=== PATIENT | male | born 1940 | race Caucasian/White ===

== ENCOUNTER 2019-03-09 10:48 | Inpatient (IN) | payer MEDICARE ==
[~2019-03-09] VITALS: Ht 177.8 cm; Wt 70.3 kg
[2019-03-09 10:49] VITALS: Ht 177.8 cm; Wt 70.3 kg
--- NOTE | 2019-03-09 10:51 | NUR ---
PT CAME FROM HOME VIA [facility]. PER DAUGHTER WAS TAKING HIM A BATH WHEN DAUGHTER NOTICED HE WAS NOT RESPONDING AND BECOMING VERY WEAK. 911 WAS CALLED. ON SCENE PARAMEDICS STATE HE WAS UNRESPONSIVE, NPA STARTED AND BEGAIN BAG VALVE MASK. PER CHRISTIAN SCIENCE PRACTITIONER BP WAS 69/47 THEN INFUSED 500CC. POST BP WAS 91/61. PT WAS AFIB ON MONITOR IN TRANSIT. PT ARRIVED WITH BAG VALVE MASK VIA NPA. PT NPA WAS TAKEN OUT AT 1051, PUT ON FULL CARDIAC MONITORS. BS TAKEN WAS 77 ON ARRIVAL. PT WAS PLACED ON NON REBREATHER MASK AT 15L/MIN OF 02, BREATH SOUNDS CLEAR TO ASCULTATION, DEEP LABORED BREATHING NOTED. PT CARDIAC RHYTHM IS IRREGULAR, PT SKIN IS COOL TO TOUCH, PROVIDED WARM BLANKETS AND REMOVED WET TOWEL THAT PT WAS BROUGHT ON. SKIN IS CLEAN AND INTACT. PT ON CARDIAC MONITORS AND DEFIB MONITOR WILL CONTINUE TO MONITOR
[2019-03-09 11:34] LABS: ALKALINE PHOSPHATASE 393 U/L (46-116); AST/SGOT 51 U/L (15-37); BILIRUBIN TOTAL 0.38 mg/dL (0.20-1.00); CARBON DIOXIDE 12.2 mmol/L (21-32); CHLORIDE SERUM 98 mmol/L (98-107); CREATININE SERUM 2.6 mg/dL (0.7-1.3); GLUCOSE SERUM 92 mg/dL (74-106); PLATELET COUNT 345 x10^3mcL (130-400); POTASSIUM SERUM 3.8 mmol/L (3.5-5.1); SODIUM SERUM 136 mmol/L (136-145)
[2019-03-09 11:46] LABS: ALT/SGPT 38 U/L (16-63)
[2019-03-09 11:50] LABS: microscopic required? YES; urine erythrocyte TRACE (NEGATIVE)
--- NOTE | 2019-03-09 11:57 | NUR ---
ATTENDED PT TO CT WITH DEFIB MONITOR. PT TOLERATED CT SCAN WELL. BACK IN ROOM AND BREATHING ON OWN WITH SPO2 AT 98% WITH 15ML NON REBREATHER MASK. EKG AT BEDSIDE
[2019-03-09 12:05] LABS: ALBUMIN 1.8 g/dL (3.4-5.0); CHOLESTEROL 96 mg/dL (<200); TOTAL PROTEIN, SERUM 6.1 g/dL (6.4-8.2)
[2019-03-09 12:18] LABS: BAND NEUTROPHIL 67 % (0-10); BASOPHIL 0 % (0-2); MONOCYTE 7 % (0-7); SEGMENTED NEUTROPHILS 11 % (37-75)
--- NOTE | 2019-03-09 12:20 | NUR ---
DR PATEL AT BEDSIDE DISCUSSING TREATMENT AND POC WITH PTS DAUGHTER.
[2019-03-09 12:21] LABS: burr cell (echinocyte) 2+; rbc morphology (normal/abnorm) ABNORMAL (NORMAL)
--- NOTE | 2019-03-09 12:26 | NUR ---
2ND LITER OF NS STARTED WELL ZOSYN IVF INFUSION ORDERED BY SEE EMAR. IV SITE PATENT
--- NOTE | 2019-03-09 12:34 | NUR ---
DR PATEL WITH PORTABLE US AT BEDSIDE
--- NOTE | 2019-03-09 12:48 | NUR ---
PT ANSWERING QUESTIONS. PT BEING BROUGHT TO CT FOR ABD
--- NOTE | 2019-03-09 13:48 | NUR ---
DR PATEL AT BEDSIDE SPEAKING TO DAUGHTER REGARDING POSSIBLE NEED FOR CENTRAL LINE PLACEMENT IF BLOOD PRESSURE BECOMES UNSTABLE AGAIN. DR PATEL SPOKE WITH PT AND HIS DAUGHTER REGARDING ALL RISKS AND BENEFITS OF PLACEMENT. DAUGHTER AND PT VERBALIZED UNDERSTANDING AND SIGNED CONSENT FOR CENTRAL LINE PLACEMENT AT THIS TIME. NO CENTRAL TO BE PLACED RIGHT AT THIS TIME.
--- NOTE | 2019-03-09 13:52 | NUR ---
PER DR PATEL, CONTINUE TO MONITOR BP. HOLD LEVOPHED AT THIS TIME.
--- NOTE | 2019-03-09 14:05 | NUR ---
RECTAL TEMP RECHECKED, 95.7, MADE AWARE.
--- NOTE | 2019-03-09 14:21 | NUR ---
WARMING BLANKET SET UP AND PLACED ON PT AT THIS TIME. PT LAYING IN POSITION OF COMFORT WITH GRANDDAUGHTER AT BEDSIDE. ANSWERING ALL QUESTIONS APPROPRIATELY.
[2019-03-09] MEDS ORDERED: POTASSIUM CHLO10 MEQ (14:45)
[2019-03-09] MEDS ORDERED: PROSCAR5 MG (14:45)
--- NOTE | 2019-03-09 15:20 | NUR ---
CLARIFIED ORDER FOR LOPRESSOR.
--- NOTE | 2019-03-09 15:43 | NUR ---
REPORT GIVEN TO BECCA MONOZN RESUMING CARE OF PT IN ICU
[2019-03-09 15:56] LABS: AMPHETAMINE QUAL UR NONE DETECTED (See below)
--- NOTE | 2019-03-09 15:58 | NUR ---
PT TRANSPORTED TO ICU VIA GURNEY ON PORTABLE CM NO DISTRESS.IVF INFUSION RESUMED BY BECCA MONZON IN ICU. FAMILY ACCOMPANIED PT. PT DC'D FROM ER AT THIS TIME.
[2019-03-09 16:39] VITALS: BP 92/69
--- NOTE | 2019-03-09 17:11 | NUR ---
IV BOLUS OF 1L NS INITIATED AT THIS TIME.
--- NOTE | 2019-03-09 17:19 | NUR ---
PATIENT'S DAUGHTER REQUESTING THAT SPECIAL WARFARE BOAT OPERATOR COME BACK LATER FOR LAB DRAW. EDUCATION PROVIDED REGARDING LAB RESULTS. DAUGHTER AGREED THAT SPECIAL WARFARE BOAT OPERATOR CAN COME BACK IN 1 HOUR.
[2019-03-09 18:04] VITALS: BP 92/69
--- NOTE | 2019-03-09 19:15 | NUR ---
RECIEVED REPORT FROM NA HUDSON. NURSING UPDATES. POC DISCUSSED. SEE SHIFT ASSESSMENT FOR ASSESSMENT.
--- NOTE | 2019-03-09 19:23 | NUR ---
REPORT GIVEN TO RAMÍREZ MONZON. PATIENT RESTING COMFORTABLY IN BED WITH ALL NEEDS MET. ALL QUESTIONS AND CONCERNS ADDRESSED. ALL CARES ENDORSED.
[2019-03-09 19:28] LABS: CALCIUM 8.7 mg/dL (8.5-10.1); CARBON DIOXIDE 19.4 mmol/L (21-32); CHLORIDE SERUM 106 mmol/L (98-107); CREATININE SERUM 1.7 mg/dL (0.7-1.3); GLUCOSE SERUM 96 mg/dL (74-106); SODIUM SERUM 139 mmol/L (136-145)
[2019-03-09 19:46] LABS: PLATELET COUNT 249 x10^3mcL (130-400); RED CELL DISTRIBUTION WIDTH 14.3 % (11.5-14.5)
[2019-03-09 19:51] VITALS: BP 117/69
[2019-03-09 19:58] LABS: BAND NEUTROPHIL 52 % (0-10); BASOPHIL 0 % (0-2); MONOCYTE 2 % (0-7); SEGMENTED NEUTROPHILS 32 % (37-75); rbc morphology (normal/abnorm) ABNORMAL (NORMAL)
[2019-03-09 19:59] LABS: burr cell (echinocyte) 1+
--- NOTE | 2019-03-09 22:34 | NUR ---
DR GREENE @ BEDSIDE. NURSING UPDATES. POC DISCUSSES. NEW ORDERS F/C TO BE INSERTED FOR FLUID VOLUME MONITORING. F/C SECURE AND INTACT PLACED W/ URINE RETURN. SECURED TO L LEG. BALLOON INFLATED W/ RESISTANCE.
[2019-03-10 00:07] VITALS: BP 105/74
--- NOTE | 2019-03-10 00:14 | NUR ---
DR PAL @ BEDSIDE. NURSING UPDATES. POC DISCUSSED. NO NEW ORDERS @ THIS TIME. KIKA GRAND DAUGHTER LEFT NUMBER [phone].
--- NOTE | 2019-03-10 01:58 | NUR ---
NO ACUTE CHANGES. PT STILL NEED OF RESTRAINTS. WILL CONT TO MONITOR.
--- NOTE | 2019-03-10 03:00 | NUR ---
NO ACUTE CHANGES. WILL CONT TO MONITOR.
[2019-03-10 04:39] VITALS: BP 141/66
[2019-03-10 05:15] LABS: PLATELET COUNT 237 x10^3mcL (130-400); RED CELL DISTRIBUTION WIDTH 14.3 % (11.5-14.5)
[2019-03-10 05:25] LABS: CALCIUM 8.6 mg/dL (8.5-10.1); CHLORIDE SERUM 112 mmol/L (98-107); CREATININE SERUM 1.3 mg/dL (0.7-1.3); GLUCOSE SERUM 141 mg/dL (74-106); PHOSPHOROUS 2.1 mg/dL (2.5-4.9); SODIUM SERUM 145 mmol/L (136-145)
[2019-03-10 05:28] LABS: POTASSIUM SERUM 2.7 mmol/L (3.5-5.1)
--- NOTE | 2019-03-10 05:34 | NUR ---
LAB NOTIFIED OF K+ 2.7. NOTIFIED DR AUSTIN, MADE AWARE, AWAITING NEW ORDERS.
[2019-03-10 05:48] LABS: BAND NEUTROPHIL 2 % (0-10); BASOPHIL 0 % (0-2); MONOCYTE 13 % (0-7); PLATELET MORPHOLOGY PLATELETS NORMAL; SEGMENTED NEUTROPHILS 75 % (37-75)
[2019-03-10 05:49] LABS: rbc morphology (normal/abnorm) NORMAL (NORMAL)
--- NOTE | 2019-03-10 06:20 | NUR ---
DR AUSTIN @ BEDSIDE. NURSING UPDATES. NO NEW ORDERS @ THIS TIME.
--- NOTE | 2019-03-10 07:45 | NUR ---
PT RESTING IN BED. GRUNTS AND MOANS ONLY AT THIS TIME. RESTLESS. ON BILATERAL SOFT WRIST RESTRAINTS. RESP EVEN AND UNLABORED ON 3L O2 VIA NC, O2 SAT 100%. HYPOACTIVE BOWEL SOUNDS, ABD SLIGHTLY DISTENDED, SLIGHTLY FIRM. AJ CATHETER DRAINING YELLOW URINE TO GRAVITY. PULSES PALPABLE ON ALL EXTREMITIES. HOB ELEVATED. FALL PRECAUTIONS. WILL CONTINUE OT MONITOR.
[2019-03-10 08:10] VITALS: BP 147/69
--- NOTE | 2019-03-10 11:27 | NUR ---
SHIFT REASSESSMENT DONE. PT SLEEPING AT THIS TIME. GRUNTS AND MOANS AT TIMES. UNABLE TO FOLLOW COMMANDS AT THIS TIME. RESP EVEN AND UNLABORED ON 1L O2 VIA NC. ABD SLIGHTLY DISTENDED AND FIRM. AJ CATHETER DRAINING YELLOW URINE TO GRAVITY. HOB ELEVATED. BILAT SOFT WRIST RESTRAINTS IN PLACE. FALL PRECAUTIONS. WILL CONTINUE TO MONITOR.
[2019-03-10 11:30] VITALS: BP 126/78
[2019-03-10 12:56] LABS: CALCIUM 8.7 mg/dL (8.5-10.1); CARBON DIOXIDE 22.3 mmol/L (21-32); CHLORIDE SERUM 112 mmol/L (98-107); CREATININE SERUM 1.3 mg/dL (0.7-1.3); GLUCOSE SERUM 141 mg/dL (74-106); SODIUM SERUM 145 mmol/L (136-145)
[2019-03-10 12:58] LABS: POTASSIUM SERUM 2.7 mmol/L (3.5-5.1)
--- NOTE | 2019-03-10 15:35 | NUR ---
DR. EDGEED AT BEDSIDE UPDATING PT'S DAUGHTER REGARDING PLAN OF CARE.
--- NOTE | 2019-03-10 15:44 | NUR ---
SHIFT REASSESSMENT DONE. PT REMAINS ALTERED, MOANING AND GRUNTING AT TIMES. ATTEMPTS TO PULL ON LINES AND EQUIPMENT. BILAT SOFT WRIST RESTRAINTS IN PLACE, ROM INTACT. RESP EVEN AND UNLABORED ON 1L NC, O2 SAT 100%. ABD SLIGHTLY FIRM AND DISTENDED. IVF INFUSING, NO REDNESS OR SWELLING TO RAC. S/L HO IV, NO REDNESS OR SWELLING. AJ CATHETER DRAINING YELLOW URINE TO GRAVITY. HOB ELEVATED. FALL PRECAUTIONS. WILL CONTINUE TO MONITOR.
[2019-03-10 16:00] VITALS: BP 117/67
--- NOTE | 2019-03-10 19:10 | NUR ---
RECEIEVED PT REPORT FROM JOAO MONZON. QUESTIONS AND CONCENRS ADDRESSED.
--- NOTE | 2019-03-10 19:12 | NUR ---
PT RESTING IN BED, HOB AT 30 DEGREES, GCS OF 9, MOANS AND GROANS IN BED, DOES NOT FOLLOW COMMANDS AT THIS TIME. PT IS ON ROOM AIR, EVEN AND UNLABORED BREATHING, SYMMETRICAL CHEST EXPANSION, SINUS TACHYCARDA TO TRANSFER PROFESSOR, NO S/S OF CHEST PAIN, NS INFUSING TO IV SITE AT 100 ML/HR, NO EDEMA PRESENT, PULSES PALPABLE. NO BM AT THIS TIME, F/C IN PLACE DRAINING TO GRAVITY, SOFT WRIST RESTRAINTS IN PLACE FOR PATIENT SAFETY, NO CONTRACTURES OR DEFORMITIES PRESENT, BED IN LOWEST POSITION, WILL MONITOR PATIENT CLOSELY.
[2019-03-10 19:31] LABS: CALCIUM 8.5 mg/dL (8.5-10.1); CARBON DIOXIDE 20.8 mmol/L (21-32); CHLORIDE SERUM 116 mmol/L (98-107); CREATININE SERUM 1.3 mg/dL (0.7-1.3); GLUCOSE SERUM 156 mg/dL (74-106); POTASSIUM SERUM 3.1 mmol/L (3.5-5.1); SODIUM SERUM 147 mmol/L (136-145)
[2019-03-10 20:05] VITALS: BP 102/56
[2019-03-11] VITALS (7 sets, daily range): BP systolic 94–126; BP diastolic 49–64
--- NOTE | 2019-03-11 04:26 | NUR ---
PATIENT RESTLESS AT THIS TIME, THRASHING IN BED, GRIMACING, MOANING AND GROANING. MEDICATION PRN PROVIDED FOR PATIENT COMFORT, WILL REASSESS AND MONITOR.
[2019-03-11 05:34] LABS: PLATELET COUNT 164 x10^3mcL (130-400); RED CELL DISTRIBUTION WIDTH 14.4 % (11.5-14.5)
[2019-03-11 05:49] LABS: CARBON DIOXIDE 21.2 mmol/L (21-32); CHLORIDE SERUM 119 mmol/L (98-107); CREATININE SERUM 1.2 mg/dL (0.7-1.3); GLUCOSE SERUM 110 mg/dL (74-106); MAGNESIUM 1.9 mg/dL (1.8-2.4); POTASSIUM SERUM 3.5 mmol/L (3.5-5.1); SODIUM SERUM 150 mmol/L (136-145)
[2019-03-11 06:02] LABS: BASOPHIL % 0 % (0-2)
--- NOTE | 2019-03-11 07:00 | NUR ---
RECIEVED REPORT FROM NA JOHNSON TO ASSUME ALL CARES. ALL QUESTIONS AND CONCERNS ADDRESSED.
--- NOTE | 2019-03-11 08:05 | NUR ---
DR. VELASQUEZ AT BEDSIDE TO ASSESS PATIENT. UPDATES PROVIDED AND POC DISCUSSED. DR. VELASQUEZ MADE AWARE PATIENT HAS NOT OPEN HIS EYES TODAY AND IS RESTLESS. MORPHINE ORDER CHANGED FROM 2 MG TO 1 MG Q 3 HRS PRN AND MONITOR NEURO STATUS CLOSELY. WILL FOLLOW AND CONTINUE TO MONITOR.
--- NOTE | 2019-03-11 09:33 | NUR ---
SPOKE WITH DR AUSTIN AND REPORTED PATIENT IN A-FIB, RATE 130'S. AWAITING NEW ORDERS.
--- NOTE | 2019-03-11 10:03 | NUR ---
BEDSIDE GLUCOSE CHECKED WAS 119. WILL CONTINUE TO MONITOR.
--- NOTE | 2019-03-11 11:35 | NUR ---
P.T. NOTES UNABLE TO SEE PATIENT AT THIS TIME DUE TO AFIB.
--- NOTE | 2019-03-11 14:42 | NUR ---
DR. INMAN AT BEDSIDE TO ASSESS PATIENT. UPDATES PROVIDED AND POC DISCUSSED. WILL CONTINUE TO MONITOR.
--- NOTE | 2019-03-11 15:05 | NUR ---
1. Recommend Regular diet (texture per CAR WASH MANAGER eval) once medically appropriate/ tolerated. Discussed with Dr. Alex Wilkes.
--- NOTE | 2019-03-11 15:05 | NUR ---
Initial Nutrition Assessment: IC09/A STELLA DASILVA IA HR Dx: colitis, sepsis, PNA PMHx: Colon cancer (stage 4), BPH PSHx: None Labs: NA 150H, BG 110H, BUN 35H, ALB 1.8L, HGB 11.7L Meds: Cardizem, Colace, flagyl, norco, Zofran, heparin Diet: NPO (pending swallow eval) PO intake since admission: NPO Ht: 177.8 cm (70") Wt: 62 kg (136#) BMI: 19.6 kg/m2 Bed scale: 62 kg IBW: 166# (75 kg) %IBW: 82 UBW: unable to access Age: 78/M Food Allergies: NKFA Skin: intact Jason: 13 Edema: none GI: stage 4 colon CA Last BM: none Per H&P, Pt is a 78 year old male with PMH of colon cancer (2014) and BPH was brought in with complaints of shortness of breath and altered level of consciousness. RD Note (03/11): Patient was sleeping. Per NA Andino, pt is NPO and awaiting swallow eval. Per Dr. Alex Wilkes, pt is NPO right now as he is agitated and awaiting swallow eval. FNS received consult for "malnutrition" on 03/10. Problem with: N/V/D/C: none Problems with: Chewing: Swallowing: pending swallow eval Current appetite: unbale to access Recent wt change: unable to access %wt change: n/a Vitamin/Supplement use: unable to access Special diet at home: unable to access Physical activity: unable to access Nutrition education given: not possible at this time Food-drug interactions: none Education given: n/a Estimated Nutritional Needs Based on current body weight (62 kg) Energy: 5899-1818 kcal/day (30-35 kcal/kg for geriatric maintenance) Protein: 74-87 g/day (1.2-1.4 g/kg for geriatric maintenance) Fluid: 4586-4682 mL/day (1 mL/kcal) Nutrition Diagnosis: 1. Increased nutrient needs related to increased metabolic demands as evidenced by history of CA and estimated calorie and protein needs. Intervention 1. Recommend Regular diet (texture per COMMERCIAL DRIVER'S LICENSE DRIVER eval) once medically appropriate/ tolerated. Discussed with Dr. El Sayed. Monitor/Evaluate Goal: PO intake at least 75% of estimated needs Monitor: PO intake, Labs, GI function F/U in 2-3 days as high risk
--- NOTE | 2019-03-11 18:00 | NUR ---
AMIODARONE DRIP TITRATED DOWN TO 0.5 MG/MIN PER PROTOCOL. WILL CONTINUE TO MONITOR.
--- NOTE | 2019-03-11 19:25 | NUR ---
RECEIVED PT IS LETHARGIC, DOES NOT FOLLOW SIMPLE COMMANDS AND DOES NOT ANSWER QUESTIONS OR SPEAKS WORDS. PT MOANS AND GRUNTS. PT LOCALIZES TO PAINFUL STIMULI. DOES NOT OPEN EYES SPONT, PUPILS 3MM SLUGGISH RESPONSE TO LIGHT B/L, PERRLA. PT ON ROOM AIR, NO ACUTE RESP DISTRESS, NO SOB, E/U BREATHING. AFIB ON MONITOR, IN AND OUT OF SINUS TACHYCARDIA. NO S/S OF CHEST PAIN. D5W INFUSING @ 100 CC/HR. HO AND RIGHT AC PORTS PATENT, NO S/S OF INFILTRATION, DRESSING CDI. F/C DRAINING TO GRAVITY TEA COLORED URINE, INTACT/SECURED. NO BM AT THIS TIME. BUE SOFT WRIST RESTRAINTS NOTED, SKIN/PULSE WNL. BED AT LOWEST SETTING, CALL LIGHT WITHIN REACH, HOB EELVATED 30 DEGREES. SEE NURSE SHIFT ASSESSEMNT FOR MORE DETAILS.
--- NOTE | 2019-03-12 02:19 | NUR ---
DR. GONZALEZ MADE AWARE OF PT'S MOANING AND GROANING AND RESTLESS NATURE AT THIS TIME. PT APPEARS TO BE IN PAIN. PER DR. GONZALEZ OK TO GIVE MORPHINE IVP ON EMAR. WILL ADMINISTER.
[2019-03-12 03:04] VITALS: BP 105/68
--- NOTE | 2019-03-12 03:30 | NUR ---
RESTRAINTS TO BUE REMOVED AT THIS TIME. PT MOANING BUT DOES NOT REACH FOR EQUIPMENT OR REMOVE IV LINES. WILL CLOSELY MONITOR.
[2019-03-12 05:18] LABS: BASOPHIL % 0.1 % (0-2)
[2019-03-12 05:24] LABS: PLATELET COUNT 122 x10^3mcL (130-400); RED CELL DISTRIBUTION WIDTH 14.6 % (11.5-14.5)
[2019-03-12 05:30] LABS: CALCIUM 9.2 mg/dL (8.5-10.1); CHLORIDE SERUM 117 mmol/L (98-107); CREATININE SERUM 1.4 mg/dL (0.7-1.3); GLUCOSE SERUM 143 mg/dL (74-106); MAGNESIUM 1.6 mg/dL (1.8-2.4); PHOSPHOROUS 2.1 mg/dL (2.5-4.9); POTASSIUM SERUM 3.5 mmol/L (3.5-5.1); SODIUM SERUM 148 mmol/L (136-145)
--- NOTE | 2019-03-12 05:59 | NUR ---
DR. AUSTIN AT [facility] FOR ASSESSMENT. UPDATED HIM ON PT'S STATUS. NO NEW ORDERS AT THIS TIME.
--- NOTE | 2019-03-12 07:05 | NUR ---
GAVE REPORT TO NA CROOKS. UPDATES PROVIDED, ENODRSED CARE.
--- NOTE | 2019-03-12 07:45 | NUR ---
SHIFT ASSESSMENT DONE. PATIENT SLEEPING, EASYLY AROUSED. CONFUSION. TELE#9; A FIB; HR = 106. ON AMIODARONE DRIP. PRODUCTIVE COUGHING WITH SMALL AMOUNT GREENISH SPUTUM BY SUCTION. O2 SAT 95% ON RA. NPO OVER 3 DAYS. IVF OF NS 100CC/HR; IV SITE TO HO AND RAC. AJ PATENT W/ BARK ROSALEE URINE OUTPUT. WRIST RESTRAINT D/C'D. TRACE EDEMA TO KRISTAL HAND. PULSES MODERATE. SKIN INTACT EXCEPT BRUISES TO BUE.
--- NOTE | 2019-03-12 08:18 | NUR ---
PHYSICAL THERAPY DAILY NOTES CO-SIGN All documentation done by the Embryology Professor for 03/11/19 has been reviewed. I agree with the documentation. Reviewed/Co-Signed by: Pina Sultana PT Documentation Done by:TRISTON CALDWELL PTA
--- NOTE | 2019-03-12 11:27 | NUR ---
DR VELASQUEZ AT BEDSIDE TO ASSESS PATIENT. DR VELASQUEZ TELEPHONED PATIENT'S DAUGHTER BHAVANA TO CLARIFY CODE. DAUGHTER WOULD LIKE PATIENT TO BE INTUBATED AFTER FURTHER DISCUSSION.
--- NOTE | 2019-03-12 11:45 | NUR ---
DR VELASQUEZ TELEPHONED PATIENT'S DAUGHTER BHAVANA DASILVA TO OBTAIN CONSENT FOR CENTRAL LINE PLACEMENT. RISKS AND BENEFITS DISCUSSED. DAUGHTER IN AGREEMENT AND CONSENT OBTAINED AND WITNESSED BY MYSELF.
[2019-03-12 11:48] VITALS: BP 90/51
--- NOTE | 2019-03-12 12:00 | NUR ---
DR VELASQUEZ, MYSELF, AND US TECH AT BEDSIDE FOR CENTRAL LINE PLACEMENT. TIME OUT TAKE WITH ALL PARTIES IN AGREEMENT.
--- NOTE | 2019-03-12 12:41 | NUR ---
1145- DR VELASQUEZ, MYSELF, VALERIY RN, KALA RN, MAGEN RT AND MEDICAL STUDENTS AT BEDSIDE FOR INTUBATION. 1145- PATIENT ADMINISTERED 20 MCG PROPOFOL 1146- PATIENT ADMINISTERED 40 MG OF SUCC'S 1148- PATIENT INTUBATED WITH #8 ETT AT 25 LL, PATIENT PLACED ON VENT SETTINGS AC MODE RATE 16, VT 400, PEEP 5, FIO2 100% 1150- #16 ARMENIAN OGT INSERTED AND PLACED TO LIS PER DR VELASQUEZ ORDER. 1.4 L OF GREENISH BLUE COLORED LIQUID REMOVED 1155- PER DR VELASQUEZ ORDER, BOLUS WITH 2 LITERS OF NS. ORDERS CARRIED OUT.
[2019-03-12 13:10] VITALS: BP 116/67
--- NOTE | 2019-03-12 14:10 | NUR ---
TELEPHONED DR VELASQUEZ AND ASKED HER TO SPEAK WITH PATIENT'S SON NIMA TO DISCUSS POC.
--- NOTE | 2019-03-12 14:27 | NUR ---
DR AUSTIN, PATIENT'S DAUGHTER BHAVANA AND HIS SON NIMA DISCUSSING POC. FAMILY WOULD LIKE TO SPEAK WITH A COUPLE OTHER FAMILY MEMBERS BEFORE DECIDING TO PROCEED WITH CARE.
--- NOTE | 2019-03-12 15:31 | NUR ---
PHYSICAL THERAPY NOTE PHYSICAL THERAPY FOLLOW UP SESSION ON HOLD, PATIENT IS NOT STABLE MEDICALLY AT THIS TIME
[2019-03-12 16:26] VITALS: BP 90/45
--- NOTE | 2019-03-12 16:33 | NUR ---
DR AUSTIN AND MYSELF SPOKE WITH PATIENT'S DAUGHTER AND SON. FAMILY HAS DECIDED TO MAKE PATIENT A DNR AND WITHDRAW CARE. COMFORT MEASURES TO BE INITIATED FAMILY WISHES.
--- NOTE | 2019-03-12 17:33 | NUR ---
ON DNR - PALLIATIVE CARE ONLY; EXTUBATED AT 1730. ON MORPHINE DRIP STARTED AT 2MG/HR.
--- NOTE | 2019-03-12 19:00 | NUR ---
REPORT GIVEN TO STEPHANIA SINGLETON RN. PATIENT IS ON MORPHINE DRIP AT 5MG/HR NOW. NO S/S OF PAIN. FAMILY AT BED SIDE.
[2019-03-12 20:00] VITALS: BP 96/49
--- NOTE | 2019-03-12 20:00 | NUR ---
PT ON MORPHINE DRIP AT 5MG/HR. ON PALLIATIVE CARE. CALM, NO RESTLESSNESS NOTED. ON 2LPM OF O2 VIA NC. CENTRAL LINE TO RIGHT IJ. PERIPHERAL IV LINES TO LEFT AC, AND RIGHT ARM, SALINE LOCKED. SCDS TO BLE. BREATHING UNLABORED. DISTENDED/ROUND/FIRM ABDOMEN, HYPOACTIVE BOWEL SOUNDS. FAMILY MEMBERS IN ROOM.
--- NOTE | 2019-03-12 22:07 | NUR ---
NO MOANING OR GRIMACING NOTED. REMAINS ON 5MG/HR OF MORPHINE DRIP. FAMILY MEMBERS AT BEDSIDE.
--- NOTE | 2019-03-12 23:25 | NUR ---
FAMILY MEMBERS EARLIER LEFT, STATED WILL COME BACK, PLACED RECLINER CHAIR IN ROOM. PT IS NOT RESTLESS. PUPILS 2MM, ROUND AND REACTIVE TO LIGHT. STILL ON MORPHINE DRIP AT 5MG/HR. CENTRAL LINE TO RIGHT IJ FREE FROM REDNESS.
--- NOTE | 2019-03-12 23:28 | NUR ---
FAMILY MEMBERS BACK IN ROOM
[2019-03-13] VITALS (7 sets, daily range): BP systolic 66–88; BP diastolic 34–52
--- NOTE | 2019-03-13 02:40 | NUR ---
rr 9-10/min. deep breathing. on morphine drip at 5mg/hr. hr 99/min. no grimacing or moaning noted. male family member at bedside on recliner chair.
--- NOTE | 2019-03-13 04:03 | NUR ---
EYES CLOSED, SEDATED. PUPILS 2MM, ROUND, EQUAL SLUGGISH REACTION TO LIGHT. MORPHINE DRIP AT 5MG/HR. INFUSING TO RIGHT IJ CENTRAL LINE. BREATHING IS DEEP AND SLOW. RR 9/MIN. O2 SAT 99-100%. HOB ELEVATED 30 DEG. DAUGHTER AT BEDSIDE ON RECLINER CHAIR.
--- NOTE | 2019-03-13 04:39 | NUR ---
HR 103/MIN. INCREASED MORPHINE DRIP TO 6MG/HR.
--- NOTE | 2019-03-13 05:00 | NUR ---
PARTIAL BED BATH ADMINISTERED. GOWN AND LINEN CHANGED. AJ CARE DONE.
--- NOTE | 2019-03-13 06:44 | NUR ---
HR 105/MIN. INCREASED MORPHINE DRIP TO 7MG/HR.
--- NOTE | 2019-03-13 07:17 | NUR ---
SLOW, DEEP BREATHING. RR 8/MIN. O2 SAT 99%. ON MORPHINE 7MG/HR. DAUGHTER AT BEDSIDE. NO GRIMACING OR MOANING. ENDORSED TO NURSE GILMORE.
--- NOTE | 2019-03-13 07:23 | NUR ---
RECEIVED ON MORPHINE DRIP AT 7MG/HR. APPEARS COMFORTABLE WITH NO S/S OF ACUTE DISTRESS. FAMILY AT BEDSIDE. COMFORT MEASURES MAINTAINED. WILL CONTINUE WITH PLAN OF CARE.
--- NOTE | 2019-03-13 09:02 | NUR ---
HR NOTED 100 TO 104, MORPHINE DRIP INCREASED TO 8MG/HR PER ORDER.
--- NOTE | 2019-03-13 09:26 | NUR ---
HR 105PER MIN. RESP.8. MORPHINE DRIP INCREASED TO 9MG/HR PER ORDER.
--- NOTE | 2019-03-13 09:28 | NUR ---
IN TO SEE PT, RECOMMENDED TO BE TRANSFERED TO TELE FLOOR. CHARGE NURSE BHANU REYNOSO.
--- NOTE | 2019-03-13 11:52 | NUR ---
RESTING COMFORTABLY. COMFORT MEASURES IN PLACE. FAMILY AT BEDSIDE.
--- NOTE | 2019-03-13 13:45 | NUR ---
RESTING AT THIS TIME. NO CHANGES TO VS. REPOSITIONED IN BED FOR COMFORT. FAMILY AT BEDSIDE.
--- NOTE | 2019-03-13 16:09 | NUR ---
[facility]. WILL CALL WHEN ROOM READY.PT REMAINS IN THE SAME STATUS, NO CHANGES IN VS. ON CONT. MS DRIP AT 9MG/HR, APPEARS COMFORTABLE AT THIS TIME.
--- NOTE | 2019-03-13 16:35 | NUR ---
PT WILL BE TRANSFERED TO [facility] ROOM 228B. REPORT GIVEN TO .
--- NOTE | 2019-03-13 17:16 | NUR ---
PT TRANSFERED TO [facility] ROOM 228B, NURSE VALERIY AT BEDSIDE TO RECEIVE PT. MORPHINE DRIP AT 9MG/HR INFUSING. NO CHANGES IN VS. NO SIGNS OF DISCOMFORT. PALLIATIVE CARE IN PLACE. EXTRA BAG OF MORPHINE DRIP AND CONTROL SUBTANCE FORMS ( CURRENT DRIP AND NEW EXTRA BAG) HANDLED TO NURSE CROOKS. PERSONAL BELONGINGS ALSO BROUGHT UP WITH PT.
--- NOTE | 2019-03-13 17:16 | NUR ---
RECEIVED PATIENT FROM ICU WITH NURSE. DNR - PALLIIATIVE COMFORT CARE ONLY. V/S = 99.1-104-8-72/40; O2 SAT 98% ON 2L VIA N/C. ON MORPHINE DRIP AT 9MG/HR. NO RESPONCE TO VERBRAL STIMULI. TELE#6; ST; HR= 104. AJ CATH IN PLACE WITH 50CC OF DARK ROSALEE URINE COLLECTED. SKIN WARM TO TOUCH. CENTRAL LINE TO RIJ W/ DRSG CLEAN AND INTACT. IVHL'D TO LUE AND RAC. SKIN INTACT. NO FAMILY MEMBER AT BED SIDE NOW.
--- NOTE | 2019-03-13 17:19 | NUR ---
GRAND DAUGHTER KIKA AWARE THAT PT IS MOVED TO ROOM 228B.
--- NOTE | 2019-03-13 20:00 | NUR ---
PT RECIEVED SEDATED,ON MORPHINE DRIP AT RATE 0F 10 ML/HR,NO RESPONSIVE VERBALLY AND PUPILS ARE FIXED,FAMILY AT THE BEDSIDE,REG RESP RATE 8BPM DIMINISHED TO KRISTAL LOWER BASES AND ON OXYGEN 2L N/C,PT HAS A F/C TO GRAVITY AND NO BED IN THE LOW POSITION AND LOCKED,PT HAS CENTRAL LINE TO THE RIJ SITE INTACT,KEPT CLEAN A DRY TO TOUCH,MADE COMFORTABLE IN BED AND WILL CONTINUE TO MONITOR.
--- NOTE | 2019-03-14 | NUR ---
PT REPOSITION AND STILL ON THE MORHINE DRIP AT 10 CC/HR,PT RESTING COMFORTABLY,PT WAS SUCTION HAD GREENISH SECREATION,HOB,WILL CONTINUE TO MONITOR.
--- NOTE | 2019-03-14 02:15 | NUR ---
PT BREATH AT 14 BPM,KEPT CLEAN AND DRY TO TOUCH AND WILL CONTINUE TO MONITOR,FAMILY AT THE BEDSIDE AT THIS TIME,WILL CONTINUE TO MONITOR.
--- NOTE | 2019-03-14 02:33 | NUR ---
CALL TO CHECK ON THE PATIENT ,PATIENIENT NOT BREATHING PUPILS FIXED.CALL THE RESIDENTS TO TALK SEE THE PATIENT 239 RESIDENTS IN THE ROOM AND PATIENT WAS PRONUCED AND THE DAUGTHER IN THE ROOM AT THE TIME.
--- NOTE | 2019-03-14 03:45 | NUR ---
AII TUBINS REMOVED AND PATIENT CLEAN AND BAGGED WAITING TO BE PICKED UP TO THE MOGUE.
--- NOTE | 2019-03-14 04:19 | NUR ---
PT BEING TAKEN TO THE [facility]OSPITAL MOGUE.
== END 2019-03-14 02:39 | disposition expired | DRG 871 ==
LOC: ED 10:48 → IC 15:00 → DU 03-13 17:10
PROVIDERS: Emergency Medicine; ADMIT General Practice
PROC: 0BH17EZ Insertion of Endotracheal Airway into Trachea, Via Natural or Artificial Opening (ICD-10-PCS; principal; 2019-03-12)
PROC: 5A1935Z Respiratory Ventilation, Less than 24 Consecutive Hours (ICD-10-PCS; 2019-03-12)
PROC: 05HM33Z Insertion of Infusion Device into Right Internal Jugular Vein, Percutaneous Approach (ICD-10-PCS; 2019-03-12)
DX: A41.9 Sepsis, unspecified organism (principal); R65.21 Severe sepsis with septic shock; J18.9 Pneumonia, unspecified organism; N17.0 Acute kidney failure with tubular necrosis; G93.41 Metabolic encephalopathy; E43 Unspecified severe protein-calorie malnutrition; J96.00 Acute respiratory failure, unspecified whether with hypoxia or hypercapnia; C18.9 Malignant neoplasm of colon, unspecified; D68.69 Other thrombophilia; E87.2 Acidosis; I48.91 Unspecified atrial fibrillation; K52.9 Noninfective gastroenteritis and colitis, unspecified; E87.6 Hypokalemia; N40.0 Benign prostatic hyperplasia without lower urinary tract symptoms; Z79.899 Other long term (current) drug therapy; Z68.24 Body mass index [BMI] 24.0-24.9, adult; Z66 Do not resuscitate
CPT/HCPCS: 36556; 36600; 82962; 97110-GP; A4628; G0378; G0480; J0282; J0692; J2060; J2250; J2270; J2543; J2704; J3010; J3370; J3475; J3480; J3490; J7030; J7040; J7042; J7050; J7120; J7620; Q0092